=== PATIENT | male | born 1955 | race Caucasian/White ===

== ENCOUNTER 2016-09-30 05:35 | Day surgery (SDC) | payer OTHER, MEDICARE ==
[2016-09-29 13:15] LABS: BASOPHILS % (AUTO) 0.4 % (0.0-2.0); EOSINOPHILS # (AUTO) 0.1 K/uL (0.0-0.4); EOSINOPHILS % (AUTO) 1.8 % (0.0-4.0); HEMATOCRIT 37.8 % (36-54); HEMOGLOBIN 12.3 g/dL (14.0-18.0); LYMPHOCYTES # (AUTO) 1.4 K/uL (1.0-5.5); LYMPHOCYTES % (AUTO) 25.1 % (20.5-51.5); MEAN CORPUSCULAR HEMOGLOBIN 27 pg (27-31); MEAN CORPUSCULAR HGB CONC 33 % (32-36); MEAN CORPUSCULAR VOLUME 82 fL (79.0-98.0); MONOCYTES # (AUTO) 0.5 K/uL (0.0-1.0); MONOCYTES % (AUTO) 9.1 % (1.7-9.3); NEUTROPHILS # (AUTO) 3.4 K/uL (1.8-7.7); NEUTROPHILS % (AUTO) 63.6 % (40.0-70.0); PLATELET COUNT (AUTO) 216 K/uL (130-430); RED CELL DISTRIBUTION WIDTH 15.1 % (9.0-15.0); WHITE BLOOD COUNT (AUTO) 5.4 K/uL (4.8-10.8)
[2016-09-29 13:24] LABS: PROTHROMBIN TIME 10.8 SECS (9.5-12.5)
[2016-09-29 13:27] LABS: ALBUMIN 4.1 g/dL (3.4-4.8); CALCIUM 9.3 mg/dL (8.4-11.0); CREATININE 0.94 mg/dL (0.55-1.30); TOTAL BILIRUBIN 0.4 mg/dL (0.0-1.0)
[~2016-09-30] VITALS: Ht 185.4 cm; Wt 82.6 kg
[2016-09-30] MEDS ORDERED: LR 1,000 ML IV SCH (08:10)
[2016-09-30] MEDS ORDERED: POLYMYXIN 500,000/BACIT.10,000 UNITS in NS IRR 1 L IR ONE (08:13)
[2016-09-30] MEDS ORDERED: MORPHINE 4 MG/ML INJ. SYRINGE IVP PRN ×3 (08:15)
[2016-09-30] MEDS ORDERED: ONDANSETRON HCL 4 MG/2 ML VIAL IVP PRN (08:15)
[2016-09-30 11:59] VITALS: BP_SYST 148
[2016-09-30] MEDS ORDERED: HYDROcodone/ACETAMIN 5-325 MG TAB (NORCO/ VICODIN) PO ONE (13:30)
[2016-09-30] MEDS ORDERED: HYDROcodone/ACETAMIN 5-325 MG TAB (NORCO/ VICODIN) ONE (13:38)
[2016-09-30] MEDS ORDERED: LISI-600 PO (19:41)
[2016-09-30] MEDS ORDERED: GLIM4TAB PO (19:42)
[2016-09-30] MEDS ORDERED: TAMS-11 PO (19:42)
[2016-09-30] MEDS ORDERED: METF1000 PO (19:42)
[2016-09-30] MEDS ORDERED: TRAM50TA92 PO (19:43)
[2016-09-30] MEDS ORDERED: FINA5TAB3 PO (19:43)
[2016-09-30] MEDS ORDERED: HYDR100T25 PO (19:44)
[2016-09-30] MEDS ORDERED: SITA25TA3 PO (19:44)
[2016-09-30] MEDS ORDERED: WARF5TAB2 PO (19:45)
[2016-09-30] MEDS ORDERED: LIP20 PO (19:46)
[2016-09-30] MEDS ORDERED: CAT.1 PO (19:47)
== END 2016-09-30 16:30 | disposition home or self-care (01) ==
LOC: UNDOADMIN 05:35 → SDS 05:35 → SMU 05:35 → EDSTATUS 07:30 → SDS 16:30
PROVIDERS: ATTEND Specialist
DX: K40.91 Unilateral inguinal hernia, without obstruction or gangrene, recurrent (principal); Z98.890 Other specified postprocedural states; E11.9 Type 2 diabetes mellitus without complications; I10 Essential (primary) hypertension; J44.9 Chronic obstructive pulmonary disease, unspecified; G62.9 Polyneuropathy, unspecified; I49.9 Cardiac arrhythmia, unspecified; D64.9 Anemia, unspecified
CPT/HCPCS: 36415; 49520; 71020; 80053; 82962; 85025; 85610; 85730; 93005; C1781; J7120

== ENCOUNTER 2016-09-30 18:35 | Emergency (ER) | payer OTHER, MEDICARE ==
[~2016-09-30] VITALS: Ht 185.4 cm; Wt 82.6 kg
[2016-09-30 18:45] VITALS: BP_SYST 158
[2016-09-30] MEDS ORDERED: LISI-600 PO (19:41)
[2016-09-30] MEDS ORDERED: METF1000 PO (19:42)
[2016-09-30] MEDS ORDERED: GLIM4TAB PO (19:42)
[2016-09-30] MEDS ORDERED: TAMS-11 PO (19:42)
[2016-09-30] MEDS ORDERED: TRAM50TA92 PO (19:43)
[2016-09-30] MEDS ORDERED: FINA5TAB3 PO (19:43)
[2016-09-30] MEDS ORDERED: SITA25TA3 PO (19:44)
[2016-09-30] MEDS ORDERED: HYDR100T25 PO (19:44)
[2016-09-30] MEDS ORDERED: WARF5TAB2 PO (19:45)
[2016-09-30] MEDS ORDERED: LIP20 PO (19:46)
[2016-09-30] MEDS ORDERED: CAT.1 PO (19:47)
[2016-09-30] MEDS ORDERED: MORPHINE 4 MG/ML INJ. SYRINGE IVP ONE (20:15)
[2016-09-30] MEDS ORDERED: cloNIDine HCL 0.1 MG TABLET PO ONE (20:15)
[2016-09-30] MEDS ORDERED: DIPHENHYDRAMINE INJ 50 MG/ML VIAL IVP ONE (20:15)
[2016-09-30 20:59] LABS: BASOPHILS % (AUTO) 0.2 % (0.0-2.0); EOSINOPHILS % (AUTO) 0.3 % (0.0-4.0); HEMOGLOBIN 11.5 g/dL (14.0-18.0); LYMPHOCYTES # (AUTO) 0.6 K/uL (1.0-5.5); LYMPHOCYTES % (AUTO) 6.6 % (20.5-51.5); MEAN CORPUSCULAR HEMOGLOBIN 27 pg (27-31); MEAN CORPUSCULAR HGB CONC 33 % (32-36); MEAN CORPUSCULAR VOLUME 83 fL (79.0-98.0); MONOCYTES # (AUTO) 0.4 K/uL (0.0-1.0); MONOCYTES % (AUTO) 5.1 % (1.7-9.3); NEUTROPHILS # (AUTO) 7.8 K/uL (1.8-7.7); NEUTROPHILS % (AUTO) 87.8 % (40.0-70.0); PLATELET COUNT (AUTO) 186 K/uL (130-430); RED BLOOD CELL COUNT(AUTO) 4.22 MIL/uL (4.2-6.2); RED CELL DISTRIBUTION WIDTH 14.9 % (9.0-15.0); WHITE BLOOD COUNT (AUTO) 8.8 K/uL (4.8-10.8)
[2016-09-30 21:02] LABS: CALCIUM 8.8 mg/dL (8.4-11.0); CREATININE 0.94 mg/dL (0.55-1.30); POTASSIUM 3.5 mmol/L (3.5-5.1)
[2016-09-30 21:08] LABS: PROTHROMBIN TIME 10.8 SECS (9.5-12.5)
[2016-09-30 21:58] VITALS: BP_SYST 147
== END 2016-09-30 21:50 | disposition home or self-care (01) ==
LOC: SED 18:35
DX: I10 Essential (primary) hypertension (principal); E11.9 Type 2 diabetes mellitus without complications
CPT/HCPCS: 36415; 80048; 84484; 85025; 85610; 93005; 96374; 96375; 99285; J1200; J2270